=== PATIENT | male | born 1990 | race Caucasian/White ===

== ENCOUNTER 2020-11-22 16:49 | Emergency (ER) | payer MEDICAID ==
[~2020-11-22] VITALS: Ht 167.6 cm; Wt 81.8 kg
[~2020-11-22 16:49] MED LIST: HYDR-4383 PO; NO HOME MEDS
[2020-11-22 17:13] VITALS: BP 132/71
== END 2020-11-22 17:27 | disposition home or self-care (01) ==
LOC: ER 16:49
DX: S00.01XA Abrasion of scalp, initial encounter (principal); M54.2 Cervicalgia; M54.9 Dorsalgia, unspecified; I10 Essential (primary) hypertension; F12.90 Cannabis use, unspecified, uncomplicated; Z00.00 Encounter for general adult medical examination without abnormal findings; Z72.89 Other problems related to lifestyle; Z79.899 Other long term (current) drug therapy; V98.8XXA Other specified transport accidents, initial encounter; Y93.89 Activity, other specified; Y92.89 Other specified places as the place of occurrence of the external cause; Y99.8 Other external cause status
CPT/HCPCS: 99283